=== PATIENT | female | born 1980 | race Caucasian/White ===

== ENCOUNTER 2017-12-13 17:00 | Emergency (ER) | payer OTHER ==
[~2017-12-13] VITALS: Ht 165.1 cm; Wt 55.8 kg
[~2017-12-13 17:00] MED LIST: ACETAMINOPHEN/H1 TA6 PO; COL100 PO; FERROUS SULFAT325 M2 PO; LAC PO; VITAMIN C500 M4 PO; ZITHROMAX250 M1 PO
[2017-12-13 17:06] VITALS: Ht 165.1 cm; Wt 55.8 kg
[2017-12-13 17:57] LABS: BASOPHIL % 0.9 % (0-2); PLATELET COUNT 380 x10^3mcL (130-400)
[2017-12-13 17:58] LABS: CALCIUM 9.3 mg/dL (8.5-10.1); CARBON DIOXIDE 22.7 mmol/L (21-32); CHLORIDE SERUM 103 mmol/L (98-107); CREATININE SERUM 0.6 mg/dL (0.6-1.0); GFR1 > 60 mL/min; GLUCOSE SERUM 98 mg/dL (74-106); POTASSIUM SERUM 3.4 mmol/L (3.5-5.1); SODIUM SERUM 136 mmol/L (136-145)
[2017-12-13 18:03] LABS: ALBUMIN 4.2 g/dL (3.4-5.0); ALKALINE PHOSPHATASE 55 U/L (46-116); ALT/SGPT 20 U/L (14-59); AST/SGOT 17 U/L (15-37); BILIRUBIN TOTAL 0.5 mg/dL (0.20-1.00); LIPASE 141 IU/L (73-393)
[2017-12-13 18:04] LABS: RED CELL DISTRIBUTION WIDTH 22.3 % (11.5-14.5)
[2017-12-13 18:09] LABS: TOTAL PROTEIN, SERUM 8.5 g/dL (6.4-8.2)
[2017-12-13 19:07] VITALS: BP 133/84
== END 2017-12-13 19:07 | disposition home or self-care (01) ==
LOC: ED 17:00
PROVIDERS: Emergency Medicine
DX: K29.60 Other gastritis without bleeding (principal); N64.4 Mastodynia; N60.02 Solitary cyst of left breast; N60.01 Solitary cyst of right breast; D64.9 Anemia, unspecified
CPT/HCPCS: 36415; Q0092

== ENCOUNTER 2017-12-17 12:28 | Emergency (ER) | payer OTHER ==
[~2017-12-17] VITALS: Ht 162.6 cm; Wt 54.4 kg
[2017-12-17 12:32] VITALS: Ht 162.6 cm; Wt 54.4 kg
[2017-12-17 13:20] LABS: BASOPHIL % 0.5 % (0-2); PLATELET COUNT 333 x10^3mcL (130-400)
[2017-12-17 13:22] LABS: CALCIUM 9.1 mg/dL (8.5-10.1); CHLORIDE SERUM 103 mmol/L (98-107); CREATININE SERUM 0.6 mg/dL (0.6-1.0); GFR1 > 60 mL/min; GLUCOSE SERUM 92 mg/dL (74-106); POTASSIUM SERUM 3.4 mmol/L (3.5-5.1); SODIUM SERUM 137 mmol/L (136-145)
[2017-12-17 13:28] LABS: ALBUMIN 4.1 g/dL (3.4-5.0); ALKALINE PHOSPHATASE 49 U/L (46-116); ALT/SGPT 19 U/L (14-59); AST/SGOT 13 U/L (15-37); BILIRUBIN TOTAL 0.4 mg/dL (0.20-1.00)
[2017-12-17 13:39] LABS: TOTAL PROTEIN, SERUM 8.3 g/dL (6.4-8.2)
[2017-12-17 14:32] VITALS: BP 118/62
== END 2017-12-17 14:32 | disposition home or self-care (01) ==
LOC: ED 12:28
PROVIDERS: Emergency Medicine
DX: K52.9 Noninfective gastroenteritis and colitis, unspecified (principal); Z86.2 Personal history of diseases of the blood and blood-forming organs and certain disorders involving the immune mechanism
CPT/HCPCS: J2405; J7030

== ENCOUNTER 2018-07-13 21:57 | Emergency (ER) | payer MEDICAID ==
[2018-07-13 22:05] VITALS: Ht 162.6 cm
[2018-07-14 01:09] LABS: BASOPHIL % 0.4 % (0-2)
[2018-07-14 01:12] LABS: PLATELET COUNT 426 x10^3mcL (130-400); RED CELL DISTRIBUTION WIDTH 21.6 % (11.5-14.5)
[2018-07-14 01:30] LABS: rbc morphology (normal/abnorm) ABNORMAL (NORMAL)
[2018-07-14 02:54] VITALS: BP 106/79
== END 2018-07-14 02:54 | disposition home or self-care (01) ==
LOC: ED 21:57
PROVIDERS: Emergency Medicine
DX: Z33.2 Encounter for elective termination of pregnancy (principal); D64.9 Anemia, unspecified
CPT/HCPCS: 36415